=== PATIENT | male | born 1970 | race Caucasian/White ===

== ENCOUNTER 2019-02-28 20:05 | Emergency (ER) | payer OTHER ==
[~2019-02-28] VITALS: Ht 175.3 cm; Wt 88.5 kg
[~2019-02-28 20:05] MED LIST: HYDACE5 PO; LEVFLO500 PO; RXHYDACE PO
[2019-02-28] MEDS ORDERED: CEPH500 PO (21:11)
== END 2019-02-28 21:57 | disposition home or self-care (01) ==
LOC: ER 20:05
DX: S62.634B Displaced fracture of distal phalanx of right ring finger, initial encounter for open fracture (principal); S61.314A Laceration without foreign body of right ring finger with damage to nail, initial encounter; Z88.0 Allergy status to penicillin; W31.89XA Contact with other specified machinery, initial encounter; Z23 Encounter for immunization
CPT/HCPCS: 11760; 12001; 73140; 90471; 90714; 99283-25